=== PATIENT | female | born 1995 | race Caucasian/White ===

== ENCOUNTER 2019-10-10 10:00 | Emergency (ER) | payer SELFPAY ==
[2019-10-10] MEDS ORDERED: Metoclopramide 10 MG/2 ML SDV IVPUSH ONE (10:58)
[2019-10-10] MEDS ORDERED: HYDROmorphone 0.5 MG/0.5 ML Syringe IVPUSH ONE (10:58)
[2019-10-10] MEDS ORDERED: Dextrose 5%-0.9% NaCl 1,000 ML IV SCH (11:00)
--- NOTE | 2019-10-10 11:03 | EDM.PDOC ---
ED HPI GENERAL MEDICAL PROBLEM - General Chief Complaint: Lower Extremity Injury/Pain Stated Complaint: L FOOT INJURY Time Seen by Provider: 10/10/19 10:57 Source of Information: Reports: Patient History Limitations: Reports: No Limitations, Intoxication (Appears to still be intoxicated from alcohol.) - History of Present Illness INITIAL COMMENTS - FREE TEXT/NARRATIVE: 24-year-old female presents to the ED for evaluation of injuries primarily to her left foot and ankle. Feels what happened are a bit fuzzy. Patient reports he was drinking alcohol fairly heavily yesterday and slipped and fell outside last night on her way home. She has severe pain in her left ankle and left dorsal foot. So contused her left face and eye no reported loss of consciousness. She denies any other injuries. Able to put any weight on the left foot or ankle. Onset: Sudden Onset Date: 10/09/19 Onset Time: 23:45 Duration: Hour(s):, Getting Worse Location: Reports: Face (Contusion periorbital aspect left eye), Lower Extremity , Left (left foot and ankle.) Quality: Reports: Ache, Burning, Throbbing Severity: Severe (Shannan pain left ankle and foot. It can) Improves with: Reports: Rest Worsens with: Reports: Movement Context: Reports: Trauma (She believes she tripped and fell outside last night.) . Denies: Activity, Exercise (Any attempts to move the foot or ankle causes severe pain), Lifting, Sick Contact Associated Symptoms: Reports: Headaches, Loss of Appetite, Malaise, Nausea/ Vomiting, Weakness. 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 Denies: Chills, Diaphoresis, Fever Eyes: Reports: Other Ears: Reports: No Symptoms (Doppler glasses or contacts. States her vision is okay and her left eye. She has periorbital contusions and abrasions from falling last night.) Nose: Reports: No Symptoms Mouth/Throat: Reports: No Symptoms Respiratory: Reports: No Symptoms, Other (Denies any pain or chest wall or ribs. ) Cardiovascular: Reports: No Symptoms GI/Abdominal: Reports: No Symptoms Genitourinary: Reports: No Symptoms Musculoskeletal: Reports: Other Skin: Reports: Bruising (Pain in her left foot and ankle are her primary source of injuries. Left face particularly laterally and inferior to the left eye. She' ll abrasions skin tears in this area but nothing that needs suturing.) Neurological: Reports: Dizziness, Headache Psychiatric: Reports: No Symptoms ED EXAM, GENERAL - Physical Exam Exam: See Below Exam Limited By: Intoxication (Drains intoxicated by alcohol but is able to give a useful history.) General Appearance: Alert, Moderate Distress (Appears to be in significant discomfort.) Eye Exam: Bilateral Eye: Normal Fundi, Periorbital Changes (She has superficial abrasions contusions to the inferior lateral aspect of her left eye. Nothing that needs sutures.), PERRL Ears: Normal External Exam Nose: Normal Inspection, Normal Mucosa Throat/Mouth: Normal Inspection, Normal Lips, Normal Teeth Head: Atraumatic (No other signs of trauma to her head.), Normocephalic, Other Neck: Normal Inspection, Supple, Non-Tender, Full Range of Motion Respiratory/Chest: No Respiratory Distress, Lungs Clear, Normal Breath Sounds, No Accessory Muscle Use, Chest Non-Tender Cardiovascular: Normal Peripheral Pulses, Regular Rate, Rhythm, No Edema, No Gallop, No Murmur, No Rub Peripheral Pulses: 3+: Posterior Tibial (L), Posterior Tibial (R), Dorsalis Pedis (L), Dorsalis Pedis (R) GI/Abdominal: Normal Bowel Sounds, Soft, No Organomegaly, No Distention, Tender Back Exam: Normal Inspection, Full Range of Motion. No: CVA Tenderness (L), CVA Tenderness (R) Extremities: Other (Denies any injuries to her hands wrists or elbows. She has some superficial abrasions over both anterior knees little worse on the left than compared to the right. No pain of the proximal tib-fib. Severe pain around the ankle particularly medial ligaments. There is ecchymoses and marked swelling of the dorsal aspect of the left foot as well. She has some superficial robles to the palmar aspect of her right hand as well without any signs of infection) Neurological: Alert, Oriented, CN II-XII Intact, Normal Cognition Psychiatric: Anxious, Tearful Skin Exam: Warm, Dry, Ecchymosis (She'll abrasions.), Other ED TRAUMA EXTREMITY PROCEDURES - Splinting Left Lower Extremity Pre-Procedure NV Status: Normal Post-Procedure NV Status: Normal Splint Material: Fiberglass Splint Design: Posterior Applied & Form Fitted By: Provider Provider Post-Splint Application NV Check: NV Status Normal (Below-knee left posterior slab) Complications: No Course - Vital Signs Last Recorded V/S: Last Vital Signs Temp 36.1 C 10/10/19 10:11 Pulse 73 10/10/19 10:11 Resp 20 10/10/19 10:11 BP 112/77 10/10/19 10:11 Pulse Ox 98 10/10/19 10:11 - Orders/Labs/Meds Orders: Active Orders 24 hr Category Date Time Status Ankle Min 3V Lt [CR] Stat Exams 10/10/19 10:59 Taken Foot Comp Min 3V Lt [CR] Stat Exams 10/10/19 10:59 Taken Dextrose 5%-0.9% NaCl [Dextrose 5%-Normal Saline] 1,000 Med 10/10/19 11:00 Active ml IV ASDIRECTED Durable Medical Equipment for Discharge [DME for Oth 10/10/19 13:17 Ordered Discharge] [COMM] Stat Medication Orders Dextrose/Sodium Chloride (Dextrose 5%-Normal Saline) 1,000 mls @ 999 mls/hr IV ASDIRECTED LINDSAY Last Admin: 10/10/19 11:26 Dose: 999 mls/hr Meds: Medications Generic Name Dose Route Start Last Admin Trade Name Freq PRN Reason Stop Dose Admin Dextrose/Sodium Chloride 1,000 mls @ 999 mls/hr 10/10/19 11:00 10/10/19 11:26 Dextrose 5%-Normal Saline IV 999 mls/hr ASDIRECTED LINDSAY Administration Discontinued Medications Generic Name Dose Route Start Last Admin Trade Name Lavern PRN Reason Stop Dose Admin Fentanyl 50 mcg 10/10/19 12:37 10/10/19 12:53 Sublimaze IVPUSH 10/10/19 12:38 50 mcg ONETIME ONE Administration Hydromorphone HCl 0.5 mg 10/10/19 10:58 10/10/19 11:25 Dilaudid IVPUSH 10/10/19 10:59 0.5 mg ONETIME ONE Administration Metoclopramide HCl 7.5 mg 10/10/19 10:58 10/10/19 11:23 Reglan IVPUSH 10/10/19 10:59 7.5 mg ONETIME ONE Administration Midazolam HCl 2 mg 10/10/19 12:37 10/10/19 12:55 Versed 1 Mg/Ml IVPUSH 10/10/19 12:38 2 mg ONETIME ONE Administration Midazolam HCl 2 mg 10/10/19 12:44 10/10/19 12:56 Versed 1 Mg/Ml IVPUSH 10/10/19 12:45 Not Given ONETIME ONE - Radiology Interpretation Free Text/Narrative:: 24-year-old female who was drinking alcohol heavily last night and not sure how she slipped and fell but believes she fell on the ice and injured her left ankle and foot. He cannot weight-bear today. She also contused periorbital tissues left eye but no signs of significant head trauma identified. Current pain is 8-9 out of 10 in her left foot and ankle. An IV D5 normal saline at open. Given Reglan 7.5 mg IV and Dilaudid 0.5 mg IV for nausea and pain relief. Days of the left ankle and foot to be done. - Re-Assessments/Exams Free Text/Narrative Re-Assessment/Exam: 10/10/19 12:00: X-rays of the left ankle are within normal limits. X-rays of the left foot reveal fractures across the bases of the second third and fourth metatarsals. Position is fair. Plan will be to place her in an Ortho-Glass splint when she has adequate pain control. She will be nonweightbearing crutch walking and taking oral pain medications. Will have her follow-up with Dr. Oscar Pedersen orthopedic surgeon [facility] [place]. Departure - Departure Time of Disposition: 13:20 Disposition: Home, Self-Care 01 Condition: Fair Clinical Impression: Metatarsal bone fracture, Closed fracture of metatarsal bone Metatarsal bone fracture Qualifiers: Encounter type: initial encounter Metatarsal bone: unspecified metatarsal Fracture type: closed Fracture alignment: nondisplaced Laterality: left Qualified Code(s): S92.302A - Fracture of unspecified metatarsal bone(s), left foot, initial encounter for closed fracture - Discharge Information *PRESCRIPTION DRUG MONITORING PROGRAM REVIEWED*: Not Applicable *COPY OF PRESCRIPTION DRUG MONITORING REPORT IN PATIENT CARLO: Not Applicable Prescriptions: Bacitracin 15 gm TP BID #1 tube oxyCODONE HCl/Acetaminophen [Percocet 5-325 mg Tablet] 1 - 2 each PO Q4H PRN # 30 tablet PRN Reason: pain relief. Instructions: Lisfranc Midfoot Injury, Metatarsal Fracture Referrals: PCP,None [Primary Care Provider] - Forms: ED Department Discharge, ED Return to Work/School Form Additional Instructions: Evaluation the emergency room today in regards to injuries to the left ankle and foot that occurred late last night. X-rays confirm fractures of the bases of the left second third and fourth metatarsals in your foot. X-rays of ankle are negative for bony injury. Treatment is Ortho-Glass splint to maintain position of fractures and your foot and allow swelling to go down over the next week before orthopedic surgery can perform any operative intervention. Is a small chance that no surgery is required as the position of the fractures is near-anatomic position. We will have you follow-up with Dr. Oscar Pedersen orthopedic surgeon at [facility] in [facility] whom specializes in foot and ankle fractures. We will place an Ortho-Glass splint today to maintain current physician of your fractures bones. You are to be be nonweightbearing , crutch walking until follow-up with Dr. Pedersen. Please call his office tomorrow morning to make an appointment. Phone number is [phone]. I have sent your x-rays to [facility] in [facility] for him to look at and I will send along notes as well. Elevate the foot is much as possible. May apply ice pack to the area one half hour out of every 4 hours for the next 2 days to help reduce swelling. Continue Motrin 600 mg every 6 hours as needed for pain relief. Percocet tablets 5/325 mg tablets one or 2 every 4-6 hours for pain relief not controlled by Motrin alone. Also due to the pain medications causing significant constipation suggest MiraLAX powder 17 g or 1 scoop every day to prevent constipation from occurring while on narcotic pain medication. Apply bacitracin ointment on the wounds around her left eye until they are healed and also on your right palmar hand to prevent any secondary infection from occurring. - My Orders Last 24 Hours: My Active Orders 10/10/19 10:59 Ankle Min 3V Lt [CR] Stat Foot Comp Min 3V Lt [CR] Stat 10/10/19 11:00 Dextrose 5%-0.9% NaCl [Dextrose 5%-Normal Saline] 1,000 ml IV ASDIRECTED 10/10/19 13:17 Durable Medical Equipment for Discharge [DME for Discharge] [COMM] Stat - Assessment/Plan Last 24 Hours: My Active Orders 10/10/19 10:59 Ankle Min 3V Lt [CR] Stat Foot Comp Min 3V Lt [CR] Stat 10/10/19 11:00 Dextrose 5%-0.9% NaCl [Dextrose 5%-Normal Saline] 1,000 ml IV ASDIRECTED 10/10/19 13:17 Durable Medical Equipment for Discharge [DME for Discharge] [COMM] Stat
[2019-10-10] MEDS ORDERED: fentaNYL 100 MCG/2 ML SDV IVPUSH ONE (12:37)
[2019-10-10] MEDS ORDERED: Midazolam 1 MG/ML 2 ML SDV IVPUSH ONE ×2 (12:37→12:44)
--- NOTE | 2019-10-11 06:36 | CR ---
Left ankle: Three views of the left ankle were obtained. Comparison: No previous ankle exam. Ankle mortise is symmetric. No fracture or other bony abnormality seen within the ankle. Impression: 1. Unremarkable left ankle exam. Diagnostic code #1 Left foot: Three views of the left foot were obtained. Comparison: No prior foot exam. Fractures are seen within the proximal shaft of the 2nd and 3rd metatarsals. Fracture also felt to be present within the base of the 4th metatarsal. Soft tissue swelling is noted. No additional abnormality is appreciated. Impression: 1. Fractures within the proximal 2nd, 3rd and 4th metatarsals. 2. Soft tissue swelling. Diagnostic code #3 This report was dictated in Mountain Standard Time
== END 2019-10-10 13:50 | disposition home or self-care (01) ==
LOC: JD.ED 10:00
DX: S92.322A Displaced fracture of second metatarsal bone, left foot, initial encounter for closed fracture (principal); S92.332A Displaced fracture of third metatarsal bone, left foot, initial encounter for closed fracture; S92.342A Displaced fracture of fourth metatarsal bone, left foot, initial encounter for closed fracture; T23.001A Burn of unspecified degree of right hand, unspecified site, initial encounter; S80.212A Abrasion, left knee, initial encounter; S80.211A Abrasion, right knee, initial encounter; W01.0XXA Fall on same level from slipping, tripping and stumbling without subsequent striking against object, initial encounter
CPT/HCPCS: 29515; 73610; 73630; 96374; 96375; 99284; J1170; J2250; J2765; J3010; J7042

== ENCOUNTER 2019-10-28 21:41 | Emergency (ER) | payer SELFPAY ==
--- NOTE | 2019-10-28 22:31 | EDM.PDOC ---
ED HPI GENERAL MEDICAL PROBLEM - General Chief Complaint: General Stated Complaint: EAR PAIN BOTH EARS POSSIBLE EAR INFECTIONS Time Seen by Provider: 10/28/19 22:27 Source of Information: Reports: Patient History Limitations: Reports: No Limitations - History of Present Illness INITIAL COMMENTS - FREE TEXT/NARRATIVE: TRIAGE NOTE == Pt presents to ER for complaints of bilateral ear pain and nausea /vomiting. Pt states that she's had these symptoms for the last day, has not taken anything for the pain, but it is causing her to have a headache. Pt denies any fevers, chills or any blood in the vomit. Pt does not appear to be in any distress at this time. Pt states she has been unable to keep anything down for the last day. [ End ] Think she has had a fever today. She is apparently been troubled by earache bilaterally for the past couple of days. She also is troubled by nausea which is been bothering her during the course of the day today. She has not taken any medication or any other measures to moderate symptoms. Risk factors consist of cigarette smoking and Q-tip use in the ears. Currently with menses. 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: Musculoskeletal History: Reports: None Neurological History: Reports: None Psychiatric History: Reports: None Endocrine/Metabolic History: Reports: None Hematologic History: Reports: None Immunologic History: Reports: None Oncologic (Cancer) History: Reports: None Dermatologic History: Reports: None - Infectious Disease History Infectious Disease History: Reports: None - Past Surgical History HEENT Surgical History: Reports: Eye Surgery Female Surgical History: Reports: Section Social & Family History - Family History Family Medical History: Noncontributory - Tobacco Use Smoking Status *Q: Current Every Day Smoker Years of Tobacco use: 10 Packs/Tins Daily: 0.5 - Caffeine Use Caffeine Use: Reports: Coffee - Recreational Drug Use Recreational Drug Use: No - Living Situation & Occupation Living situation: Reports: Occupation: Unemployed ED ROS GENERAL - Review of Systems Review Of Systems: Comprehensive ROS is negative, except as noted in HPI. ED EXAM, GENERAL - Physical Exam Exam: See Below Exam Limited By: No Limitations General Appearance: Alert, WD/WN, No Apparent Distress Eye Exam: Bilateral Eye: EOMI, PERRL Ears: Normal External Exam, Other (Both canals are quite tender and the exam is difficult. The right TM appears cloudy suggestive of chronic inflammation. The right canal is quite hyperemic. Left canal likewise quite tender and with some white debris and patient could not tolerate exam to examine the TM.) Nose: Normal Inspection Throat/Mouth: Other (Posterior pharynx is mildly erythematous) Neck: Normal Inspection, Supple Respiratory/Chest: No Respiratory Distress, Other (There is a harsh cough and coarse breath sounds bilaterally) Cardiovascular: Regular Rate, Rhythm, No Edema GI/Abdominal: Soft, Non-Tender Extremities: Normal Inspection, No Pedal Edema Neurological: Alert, Oriented, CN II-XII Intact Psychiatric: Normal Affect, Normal Mood Skin Exam: Warm, Dry Course - Vital Signs Text/Narrative:: Patient has received a liter of IV fluids with resolution of the severe nausea. She is also received a gram of Rocephin IV. She also has had Cortisporin otic drops instilled. Last Recorded V/S: Last Vital Signs Temp 36.4 C 10/28/19 21:56 Pulse 75 10/28/19 21:56 Resp 16 10/28/19 21:56 BP 137/95 H 10/28/19 21:56 Pulse Ox 98 10/28/19 21:56 - Orders/Labs/Meds Orders: Active Orders 24 hr Category Date Time Status Sodium Chloride 0.9% [Normal Saline] 1,000 ml Med 10/28/19 22:53 Active IV ONETIME Medication Orders Sodium Chloride (Normal Saline) 1,000 mls @ 1,000 mls/hr IV ONETIME ONE Stop: 10/28/19 23:52 Last Admin: 10/28/19 23:17 Dose: 1,000 mls/hr Labs: Laboratory Tests 10/28/19 10/28/19 Range/Units 22:43 22:43 Urine Color Yellow (Yellow) Urine Appearance Clear (Clear) Urine pH 7.0 (5.0-8.0) Ur Specific [place] 1.020 (1.005-1.030) Urine Protein Negative (Negative) Urine Glucose (UA) Negative (Negative) Urine Ketones Negative (Negative) Urine Occult Blood 2+ H (Negative) Urine Nitrite Negative (Negative) Urine Bilirubin Negative (Negative) Urine Urobilinogen 4.0 H (0.2-1.0) Ur Leukocyte Esterase Negative (Negative) Urine RBC 5-10 H (0-5) /hpf Urine WBC 0-5 (0-5) /hpf Ur Squamous Epith Cells 0-5 (0-5) /hpf Urine Bacteria Few (FEW) /hpf Urine Mucus Few (FEW) /hpf Urine HCG, Qual Negative (NEGATIVE) Meds: Medications Generic Name Dose Route Start Last Admin Trade Name Freq PRN Reason Stop Dose Admin Sodium Chloride 1,000 mls @ 1,000 mls/hr 10/28/19 22:53 10/28/19 23:17 Normal Saline IV 10/28/19 23:52 1,000 mls/hr ONETIME ONE Administration Discontinued Medications Generic Name Dose Route Start Last Admin Trade Name Freq PRN Reason Stop Dose Admin Ceftriaxone Sodium Confirm 10/28/19 23:07 10/28/19 23:17 Rocephin Administered 10/28/19 23:08 1 gm Dose Administration 1 gm IV .STK-MED ONE Ceftriaxone Sodium 1 gm/ 100 mls @ 200 mls/hr 10/28/19 23:01 Sodium Chloride IV 10/28/19 23:30 ONETIME ONE Sodium Chloride Confirm 10/28/19 23:07 10/28/19 23:17 Normal Saline Administered 10/28/19 23:08 100 mls/hr Dose Administration 100 mls @ as directed .ROUTE .STK-MED ONE Neomycin/Polymyxin/Hydrocortisone 0 ml 10/28/19 22:55 10/28/19 23:17 Cortisporin Otic Susp EARBOTH 10/28/19 22:56 2 ml ONETIME ONE Administration Departure - Departure Time of Disposition: 00:07 Disposition: Home, Self-Care 01 Condition: Good Clinical Impression: Viral gastroenteritis, Tobacco abuse counseling Otitis externa of both ears Qualifiers: Otitis externa type: unspecified type Chronicity: acute Qualified Code(s): H60.503 - Unspecified acute noninfective otitis externa, bilateral - Discharge Information *PRESCRIPTION DRUG MONITORING PROGRAM REVIEWED*: No *COPY OF PRESCRIPTION DRUG MONITORING REPORT IN PATIENT CARLO: No Prescriptions: Amoxicillin/Clavulanate K [Augmentin 875-125 MG] 1 tab PO Q12H #20 tablet Referrals: Tonny Batres MD [Physician] - Forms: ED Department Discharge Additional Instructions: There is an infection of the ear canals on both sides. This is an otitis externa. Exam of the eardrums was difficult because of the pain but it is suspected that there is also an infection involving the area of the eardrums. You have received Rocephin which is a broad-spectrum antibiotic as well as eardrops. Tomorrow start Augmentin twice a day. You may take the eardrops at home with you and use them 2 drops in both ears 3-4 times a day for no more than 5 days. There is also nausea and vomiting which is probably caused by a virus. You have received a liter of IV fluids. It is recommended that you be on a clear liquid diet for the next 12 hours. If you cannot take clear liquids in adequate quantity to pass light-colored urine every 2 or 3 hours you need to return to the ER. You have a cough and coarse breath sounds. It is suspected that there may be an early bronchitis involved. The antibiotic administered in the emergency department should be effective for a lower respiratory tract process such as this. He will also continue on Augmentin for the next 10 days taking it twice a day. For any worsening of symptoms or for any lack of risk improvement return to the ER right away. You have been referred to on-physician Dr. Escoto. Call him in the morning and arrange for outpatient follow-up. You are urged to stop smoking. Sepsis Event Note - Evaluation Sepsis Screening Result: No Definite Risk - Focused Exam Vital Signs: Vital Signs Temp Pulse Resp BP Pulse Ox 10/28/19 21:56 36.4 C 75 16 137/95 H 98 Date Exam was Performed: 10/28/19 Time Exam was Performed: 23:44 - My Orders Last 24 Hours: My Active Orders 10/28/19 22:53 Sodium Chloride 0.9% [Normal Saline] 1,000 ml IV ONETIME - Assessment/Plan Last 24 Hours: My Active Orders 10/28/19 22:53 Sodium Chloride 0.9% [Normal Saline] 1,000 ml IV ONETIME
[2019-10-28] MEDS ORDERED: Sodium Chloride 0.9% 1,000 ML IV ONE (22:53)
[2019-10-28] MEDS ORDERED: Hydrocortisone/Neomycin/Polymyxin B Otic Susp 10 ML Bottle EARBOTH ONE (22:55)
[2019-10-28] MEDS ORDERED: cefTRIAXone 1 GM in Sodium Chloride 0.9% 100 ML IV ONE (23:01)
[2019-10-28] MEDS ORDERED: Sodium Chloride 0.9% 100 ML ONE (23:07)
[2019-10-28] MEDS ORDERED: cefTRIAXone 1 GM AdvVial IV ONE (23:07)
== END 2019-10-29 00:16 | disposition home or self-care (01) ==
LOC: JD.ED 21:41
DX: H60.503 Unspecified acute noninfective otitis externa, bilateral (principal); A08.4 Viral intestinal infection, unspecified; Z71.6 Tobacco abuse counseling; F17.210 Nicotine dependence, cigarettes, uncomplicated
CPT/HCPCS: 81001; 81025; 96365; 99283; 99284-25; A9270-GY; J0696; J7030; J7050

== ENCOUNTER 2019-11-29 13:57 | Emergency (ER) | payer OTHER ==
[2019-11-29] MEDS ORDERED: Acetaminophen 325 MG Tab PO ONE (15:52)
--- NOTE | 2019-11-29 16:01 | EDM.PDOC ---
ED HPI GENERAL MEDICAL PROBLEM - General Chief Complaint: Flank Pain Stated Complaint: ALCOHOL DETOX Time Seen by Provider: 11/29/19 15:06 Source of Information: Reports: Patient, RN Notes Reviewed History Limitations: Reports: No Limitations - History of Present Illness INITIAL COMMENTS - FREE TEXT/NARRATIVE: Patient is a 24-year-old female who presents to the ED for a couple different complaints. Patient notes that she is a alcoholic. She states that she likes to drink too much, she does not have a preference toward beer or liquor, but she states that she likes to drink quite a bit. She has been in contact with us above the outpatient services of the area, and they directed her to present to the ER for alcohol detox services, the patient's not had much success quitting drinking by herself at home. The patient states that she would like help from quitting drinking at this time. She does note that last night she developed some bilateral flank pain, with frequency of urination and smaller amounts than she normally goes. She is not complaining of any dysuria or pain with urination. She notes that the pain is stabbing in nature, it stays in her upper back near her kidneys. She also states that she has some nausea with this. She is afebrile at time of triage but does not complain of any fevers at home. Bilateral Flank Pain Score (Numeric/FACES): 10 - Related Data Allergies Allergy/AdvReac Type Severity Reaction Status Date / Time No Known Allergies Allergy Verified 11/29/19 14:53 Home Meds: Home Meds Amoxicillin/Clavulanate K [Augmentin 875-125 MG] 1 tab PO Q12H #20 tablet [Rx] Past Medical History HEENT History: Reports: Impaired Vision Genitourinary History: Reports: UTI, Recurrent WE[employer] History: Reports: Musculoskeletal History: Reports: Fracture Other Musculoskeletal History: left foot fracture. Psychiatric History: Reports: Addiction, Depression - Past Surgical History HEENT Surgical History: Reports: Eye Surgery Female Surgical History: Reports: Section Social & Family History - Family History Family Medical History: Noncontributory - Tobacco Use Smoking Status *Q: Current Every Day Smoker Years of Tobacco use: 10 Packs/Tins Daily: 0.5 - Caffeine Use Caffeine Use: Reports: Coffee - Alcohol Use Alcohol Use History: Yes Days Per Week of Alcohol Use: 7 Date of Last Drink: 11/29/19 Time of Last Drink: 02:00 - Recreational Drug Use Recreational Drug Use: No - Living Situation & Occupation Living situation: Reports: Occupation: Unemployed ED ROS GENERAL - Review of Systems Review Of Systems: See Below Constitutional: Denies: Fever, Chills Respiratory: Denies: Shortness of Breath Cardiovascular: Denies: Chest Pain GI/Abdominal: Reports: Nausea. Denies: Abdominal Pain, Vomiting : Reports: Frequency. Denies: Dysuria, Urgency Neurological: Denies: Confusion, Headache Psychiatric: Denies: Anxiety, Depression, Homicidal Ideation, Suicidal Ideation ED EXAM, GENERAL - Physical Exam Exam: See Below Exam Limited By: No Limitations General Appearance: Alert, WD/WN, No Apparent Distress Eye Exam: Bilateral Eye: EOMI, Normal Inspection, PERRL Ears: Normal External Exam Throat/Mouth: Normal Inspection, Normal Lips, Normal Teeth, Normal Gums, Normal Oropharynx, Normal Voice, No Airway Compromise Head: Atraumatic, Normocephalic Neck: Normal Inspection Respiratory/Chest: No Respiratory Distress, Lungs Clear, Normal Breath Sounds, No Accessory Muscle Use, Chest Non-Tender Cardiovascular: Normal Peripheral Pulses, Regular Rate, Rhythm, No Murmur Peripheral Pulses: 3+: Radial (L), Radial (R) GI/Abdominal: Normal Bowel Sounds, Soft, Non-Tender, No Distention, No Mass Back Exam: Normal Inspection. No: CVA Tenderness (L), CVA Tenderness (R) Extremities: Normal Inspection, Normal Capillary Refill Neurological: Alert, Oriented, Normal Cognition, No Motor/Sensory Deficits Psychiatric: Normal Affect, Normal Mood Skin Exam: Warm, Dry, Intact, Normal Color, No Rash Course - Vital Signs Last Recorded V/S: Last Vital Signs Temp 97 F 11/29/19 14:51 Pulse 62 11/29/19 14:51 Resp 16 11/29/19 14:51 BP 136/94 H 11/29/19 14:51 Pulse Ox 99 11/29/19 14:51 - Orders/Labs/Meds Labs: Laboratory Tests 11/29/19 11/29/19 11/29/19 Range/Units 15:25 15:29 15:29 WBC (3.98-10.04) K/mm3 RBC (3.98-5.22) M/mm3 Hgb (11.2-15.7) gm/dl Hct (34.1-44.9) % MCV (79.4-94.8) fl MCH (25.6-32.2) pg MCHC (32.2-35.5) g/dl RDW Std Deviation (36.4-46.3) fL Plt Count (182-369) K/mm3 MPV (9.4-12.3) fl Neut % (Auto) (34.0-71.1) % Lymph % (Auto) (19.3-51.7) % Wake % (Auto) (4.7-12.5) % Eos % (Auto) (0.7-5.8) Baso % (Auto) (0.1-1.2) % Neut # (Auto) (1.56-6.13) K/mm3 Lymph # (Auto) (1.18-3.74) K/mm3 Wake # (Auto) (0.24-0.36) K/mm3 Eos # (Auto) (0.04-0.36) K/mm3 Baso # (Auto) (0.01-0.08) K/mm3 Manual Slide Review Sodium (136-145) mEq/L Potassium (3.5-5.1) mEq/L Chloride (98-107) mEq/L Carbon Dioxide (21-32) mEq/L Anion Gap (5-15) BUN (7-18) mg/dL Creatinine (0.55-1.02) mg/dL Est Cr Clr Drug Dosing mL/min Estimated GFR (MDRD) (>60) mL/min BUN/Creatinine Ratio (14-18) Glucose (74-106) mg/dL Calcium (8.5-10.1) mg/dL Total Bilirubin (0.2-1.0) mg/dL AST (15-37) U/L ALT (14-59) U/L Alkaline Phosphatase (46-116) U/L Total Protein (6.4-8.2) g/dl Albumin (3.4-5.0) g/dl Globulin gm/dL Albumin/Globulin Ratio (1-2) TSH 3rd Generation (0.358-3.74) uIU/mL Urine Color Yellow (Yellow) Urine Appearance Clear (Clear) Urine pH 6.0 (5.0-8.0) Ur Specific Norman 1.025 (1.005-1.030) Urine Protein Negative (Negative) Urine Glucose (UA) Negative (Negative) Urine Ketones Negative (Negative) Urine Occult Blood Negative (Negative) Urine Nitrite Negative (Negative) Urine Bilirubin Negative (Negative) Urine Urobilinogen 0.2 (0.2-1.0) Ur Leukocyte Esterase Negative (Negative) Urine RBC 0-5 (0-5) /hpf Urine WBC 0-5 (0-5) /hpf Ur Squamous Epith Cells 5-10 H (0-5) /hpf Urine Bacteria Few (FEW) /hpf Urine Mucus Few (FEW) /hpf Urine HCG, Qual Negative (NEGATIVE) Urine Opiates Screen Negative (HUJPCJ=642) Ur Buprenorphine Scrn Negative (CUTOFF=10) Ur Oxycodone Screen Negative (AAC1EG=623) Urine Methadone Screen Negative (MEELYQ=525) Ur Propoxyphene Screen Negative (UKKSDK=413) Ur Barbiturates Screen Negative (JHEJRB=808) Ur Tricyclics Screen Negative (NIIYRM=266) Ur Phencyclidine Scrn Negative (CUTOFF=25) Ur Amphetamine Screen Negative (YHUIZM=505) U Methamphetamines Scrn Negative (YYUFKW=096) U Benzodiazepines Scrn Negative (RRZAAV=562) U Cocaine Metab Screen Negative (CZOWUK=466) U Marijuana (THC) Screen Negative (CUTOFF=50) Ethyl Alcohol (0.00) gm% 11/29/19 11/29/19 Range/Units 16:21 16:21 WBC 6.19 (3.98-10.04) K/mm3 RBC 3.87 L (3.98-5.22) M/mm3 Hgb 13.2 (11.2-15.7) gm/dl Hct 38.4 (34.1-44.9) % MCV 99.2 H (79.4-94.8) fl MCH 34.1 H (25.6-32.2) pg MCHC 34.4 (32.2-35.5) g/dl RDW Std Deviation 42.3 (36.4-46.3) fL Plt Count 211 (182-369) K/mm3 MPV 9.4 (9.4-12.3) fl Neut % (Auto) 57.8 (34.0-71.1) % Lymph % (Auto) 24.2 (19.3-51.7) % Wake % (Auto) 16.3 H (4.7-12.5) % Eos % (Auto) 1.0 (0.7-5.8) Baso % (Auto) 0.5 (0.1-1.2) % Neut # (Auto) 3.58 (1.56-6.13) K/mm3 Lymph # (Auto) 1.50 (1.18-3.74) K/mm3 Wake # (Auto) 1.01 H (0.24-0.36) K/mm3 Eos # (Auto) 0.06 (0.04-0.36) K/mm3 Baso # (Auto) 0.03 (0.01-0.08) K/mm3 Manual Slide Review Abnormal smear Sodium 136 (136-145) mEq/L Potassium 3.6 (3.5-5.1) mEq/L Chloride 101 (98-107) mEq/L Carbon Dioxide 25 (21-32) mEq/L Anion Gap 13.6 (5-15) BUN 5 L (7-18) mg/dL Creatinine 0.7 (0.55-1.02) mg/dL Est Cr Clr Drug Dosing 113.58 mL/min Estimated GFR (MDRD) > 60 (>60) mL/min BUN/Creatinine Ratio 7.1 L (14-18) Glucose 106 (74-106) mg/dL Calcium 9.3 (8.5-10.1) mg/dL Total Bilirubin 0.7 (0.2-1.0) mg/dL AST 56 H (15-37) U/L ALT 42 (14-59) U/L Alkaline Phosphatase 100 (46-116) U/L Total Protein 7.3 (6.4-8.2) g/dl Albumin 3.5 (3.4-5.0) g/dl Globulin 3.8 gm/dL Albumin/Globulin Ratio 0.9 L (1-2) TSH 3rd Generation 0.603 (0.358-3.74) uIU/mL Urine Color (Yellow) Urine Appearance (Clear) Urine pH (5.0-8.0) Ur Specific Norman (1.005-1.030) Urine Protein (Negative) Urine Glucose (UA) (Negative) Urine Ketones (Negative) Urine Occult Blood (Negative) Urine Nitrite (Negative) Urine Bilirubin (Negative) Urine Urobilinogen (0.2-1.0) Ur Leukocyte Esterase (Negative) Urine RBC (0-5) /hpf Urine WBC (0-5) /hpf Ur Squamous Epith Cells (0-5) /hpf Urine Bacteria (FEW) /hpf Urine Mucus (FEW) /hpf Urine HCG, Qual (NEGATIVE) Urine Opiates Screen (KILUMD=037) Ur Buprenorphine Scrn (CUTOFF=10) Ur Oxycodone Screen (QKM9OX=740) Urine Methadone Screen (FBVDHU=034) Ur Propoxyphene Screen (BHDWIZ=693) Ur Barbiturates Screen (OCUUIJ=599) Ur Tricyclics Screen (LVAGYY=509) Ur Phencyclidine Scrn (CUTOFF=25) Ur Amphetamine Screen (CEMNDO=654) U Methamphetamines Scrn (JDJBAA=771) U Benzodiazepines Scrn (NMIBJF=929) U Cocaine Metab Screen (DXMKFC=265) U Marijuana (THC) Screen (CUTOFF=50) Ethyl Alcohol 0.00 (0.00) gm% Meds: Medications Discontinued Medications Generic Name Dose Route Start Last Admin Trade Name Ezequielq PRN Reason Stop Dose Admin Acetaminophen 975 mg 11/29/19 15:52 11/29/19 16:02 Tylenol PO 11/29/19 15:53 975 mg NOW ONE Administration Ondansetron HCl 4 mg 11/29/19 16:11 11/29/19 16:39 Zofran Odt PO 11/29/19 16:12 4 mg ONETIME ONE Administration - Re-Assessments/Exams Free Text/Narrative Re-Assessment/Exam: 11/29/19 16:11 Patient presents to the ED for evaluation of possible UTI and help for alcohol detox. I did order some labs, to include a urinalysis, urine drug screen and, CBC, CMP, blood alcohol level and TSH level. I was in contact with [facility] human services, they state that they are full with regards to crisis bed or alcohol beds, but states that she would be a good candidate to come to [facility] at 8 the morning for open intake and go home with her mother for observation tonight, and presented to [facility] in the morning. I will go over options with the family once some of the labs have been resulted. 11/29/19 17:41 Labs are back to demonstrate no acute abnormalities, urine does not show any sign of a UTI as well. I will talk with the patient regarding placement at [facility] tomorrow. I will contact [facility] again and have them assess the patient. 11/29/19 21:16 Was made aware by nursing staff, that the patient has left the ER. I was waiting to talk with the mother, and the [facility] staff all at once however they left before I could facilitate this. I will [facility] Departure - Departure Time of Disposition: 21:17 Disposition: Eloped 07 Condition: Fair Clinical Impression: Alcohol abuse - Discharge Information *PRESCRIPTION DRUG MONITORING PROGRAM REVIEWED*: No *COPY OF PRESCRIPTION DRUG MONITORING REPORT IN PATIENT CARLO: No Referrals: PCP,None [Primary Care Provider] - Forms: ED Department Discharge Sepsis Event Note - Evaluation Sepsis Screening Result: No Definite Risk - Focused Exam Vital Signs: Vital Signs Temp Pulse Resp BP Pulse Ox 11/29/19 14:51 97 F 62 16 136/94 H 99 Date Exam was Performed: 11/29/19 Time Exam was Performed: 21:16
[2019-11-29] MEDS ORDERED: Ondansetron 4 MG Tab.DIS PO ONE (16:11)
== END 2019-11-29 21:10 | disposition left against medical advice (07) ==
LOC: JD.ED 13:57
DX: F10.10 Alcohol abuse, uncomplicated (principal); F17.210 Nicotine dependence, cigarettes, uncomplicated; Y90.0 Blood alcohol level of less than 20 mg/100 ml
CPT/HCPCS: 36415; 80053; 80306; 80320; 81001; 81025; 84443; 85025; 99284; A9270; 99283; G0480